=== PATIENT | male | born 1970 | race Caucasian/White ===

== ENCOUNTER 2017-10-20 03:10 | Emergency (ER) | payer OTHER ==
[~2017-10-20] VITALS: Ht 190.5 cm; Wt 107.2 kg
[2017-10-20 03:15] VITALS: BP 133/82
[2017-10-20] MEDS ORDERED: CLINDAMYCIN 150 MG CAP PO ONE (03:25)
[2017-10-20] MEDS ORDERED: IBUPROFEN 800 MG TAB PO ONE (03:25)
[2017-10-20 03:52] VITALS: BP 133/82
== END 2017-10-20 03:53 | disposition home or self-care (01) ==
LOC: MED 03:10
DX: K01.1 Impacted teeth (principal); K04.7 Periapical abscess without sinus
CPT/HCPCS: 99283

== ENCOUNTER 2018-10-23 17:31 | Emergency (ER) | payer OTHER ==
[~2018-10-23] VITALS: Ht 190.5 cm; Wt 119.0 kg
[2018-10-23 17:57] VITALS: BP 141/91
--- NOTE | 2018-10-23 18:02 | NUR ---
Patient ambulated to bed 3 with family. RN evaluating patient at bedside.
--- NOTE | 2018-10-23 18:15 | NUR ---
PT STATES HE PULLED HIS LT 1ST FINGER OUT OF SOCKED ON 10/18/18, HE PUT IT BACK, BUT REPORTS PAIN HAS NOT GONE AWAY. DENIES N/V/D; SKIN IS PINK/WARM/DRY; AAOX4 WITH EVEN AND STEADY GAIT; PATIENT STATES PAIN OF 5/10 AT THIS TIME; VSS; PATIENT POSITIONED FOR COMFORT; HOB ELEVATED; BEDRAILS UP X1; BED DOWN. ER MD MADE AWARE OF PT STATUS.
[2018-10-23] MEDS ORDERED: IBUPROFEN 800 MG TAB PO ONE (18:35)
--- NOTE | 2018-10-23 19:12 | NUR ---
LONG FINGER SPLINT PLACED ON PT L THUMB, WRAPPED WITH TRUDY WRAP. +CSM
--- NOTE | 2018-10-23 19:22 | NUR ---
REPORT GIVEN AND CARE TRANSFERED TO [facility].
--- NOTE | 2018-10-23 19:56 | NUR ---
Patient discharged with v/s stable. Patient acting appropriatly, states pain has decreased to 0/10; states thumb feels better with split applied. Splint applied, cap refil <2; CMS intact. Written and verbal after care instructions given and explained. Patient alert, oriented and verbalized understanding of instructions. Ambulatory with steady gait. All questions addressed prior to discharge. ID band removed. Patient advised to follow up with PMD. Rx of Ibuprofen given. Patient educated on indication of medication including possible reaction and side effects. Opportunity to ask questions provided and answered.
[2018-10-23 19:58] VITALS: BP 121/83
== END 2018-10-23 19:56 | disposition home or self-care (01) ==
LOC: MED 17:31
DX: S66.212A Strain of extensor muscle, fascia and tendon of left thumb at wrist and hand level, initial encounter (principal); W22.8XXA Striking against or struck by other objects, initial encounter; Y93.89 Activity, other specified; Y92.89 Other specified places as the place of occurrence of the external cause; Y99.8 Other external cause status
CPT/HCPCS: 29130; 73130; 99283; Q0092

== ENCOUNTER 2022-05-17 12:22 | Emergency (ER) | payer OTHER ==
[~2022-05-17] VITALS: Ht 188 cm; Wt 119.7 kg
[2022-05-17 12:26] VITALS: BP 139/68
--- NOTE | 2022-05-17 12:31 | NUR ---
DR MARCOS AT BEDSIDE FOR EVAL
--- NOTE | 2022-05-17 12:34 | NUR ---
52 Y/O MALE BIB SELF C/O HEAD INJURY AT WORK AT 0730, PT WAS WALKING UNDER A VEHICLE WHEN HE HIT THE SUSPENSION. NOTED SWELLING ON THE LEFT UPPER SCALP. DENIES LOC, STATES SLIGHT NAUSEA, DENIES ANY NECK PAIN, STATES SOME LOW BACK PAIN, DENIES ANY BLURRY VISION NKA PMH: DENIES
[2022-05-17] MEDS ORDERED: ONDANSETRON 4 MG ODT PO ONE (12:35)
[2022-05-17] MEDS ORDERED: ACETAMINOPHEN EXTRA STRENGTH 500 MG TAB PO ONE (12:35)
--- NOTE | 2022-05-17 12:51 | NUR ---
WOUND TO PARIETAL IRRIGATED WITH NORMAL SALINE AND BETADINE AND BANDAID APPLIED. PT GIVEN ICE PACK
[2022-05-17] MEDS ORDERED: ONDA-188 PO (13:44)
[2022-05-17] MEDS ORDERED: CYCL-711 PO (13:44)
[2022-05-17 15:30] VITALS: BP 136/68
--- NOTE | 2022-05-17 15:30 | NUR ---
Patient discharged with v/s stable. Written and verbal after care instructions FOR CONTUSION, HEAD INJURY AND ACUTE BACK PAIN given and explained. Patient alert, oriented and verbalized understanding of instructions. Ambulatory with steady gait. All questions addressed prior to discharge. ID band removed. Patient advised to follow up with PMD. Rx of FLEXERIL AND ZOFRAN ODT given. Opportunity to ask questions provided and answered.
== END 2022-05-17 15:30 | disposition home or self-care (01) ==
LOC: MED 12:22
DX: S39.012A Strain of muscle, fascia and tendon of lower back, initial encounter (principal); S09.90XA Unspecified injury of head, initial encounter; Z72.89 Other problems related to lifestyle; X58.XXXA Exposure to other specified factors, initial encounter; Y93.89 Activity, other specified; Y92.89 Other specified places as the place of occurrence of the external cause; Y99.8 Other external cause status
CPT/HCPCS: 70450; 72040; 72110; 99284; Q0162

== ENCOUNTER 2023-04-04 21:00 | Emergency (ER) | payer OTHER ==
[~2023-04-04] VITALS: Ht 190.5 cm; Wt 124.7 kg
[~2023-04-04 21:00] MED LIST: CYCL-711 PO; ONDA-188 PO
[2023-04-04 21:26] VITALS: BP 137/71; PULSE 86; RESP 16; TEMP 98.9; O2SAT 98
[2023-04-04] MEDS ORDERED: KETOROLAC 30 MG/ML VIAL IM ONE (23:05)
[2023-04-04] MEDS ORDERED: LIDOCAINE 5% 1 EA PATCH TP ONE (23:05)
[2023-04-04] MEDS ORDERED: methocarbamoL 500 MG TAB PO ONE (23:05)
[2023-04-04 23:30] VITALS: BP 137/71; PULSE 86; RESP 16; TEMP 98.9
[2023-04-04 23:31] VITALS: O2SAT 98
[2023-04-05] MEDS ORDERED: NAPR-1560 PO (01:59)
[2023-04-05] MEDS ORDERED: METH-1681 PO (01:59)
[2023-04-05] MEDS ORDERED: LID5T TP (01:59)
== END 2023-04-05 02:06 | disposition home or self-care (01) ==
LOC: MED 21:00
DX: M54.50 Low back pain, unspecified (principal)
CPT/HCPCS: 81002; 96372; 99283; J1885